=== PATIENT | male | born 1990 | race Two or more races ===

== ENCOUNTER 2024-09-19 10:28 | Inpatient (IN) | payer MEDICAID ==
[~2024-09-19] VITALS: Ht 185.4 cm; Wt 77.1 kg
[2024-09-19] VITALS (8 sets, daily range): BP systolic 79–102; BP diastolic 48–70; TEMP 97.8–101; O2SAT 96–99
[2024-09-19] MEDS ORDERED: LORAZEPAM INJ 2 MG/ML VIAL ONE ×2 (11:00→12:59)
[2024-09-19] MEDS: ONDANSETRON HCL/PF - ER 4 MG/2 ML VIAL IV ONE (11:00)
[2024-09-19] MEDS: LORAZEPAM INJ 2 MG/ML VIAL IV ONE ×2 (11:00→13:05)
[2024-09-19] MEDS ORDERED: ONDANSETRON HCL/PF 4 MG/2 ML VIAL ONE (11:00)
[2024-09-19 11:01] LABS: PLATELET COUNT (AUTO) 271 K/uL (150-450); RED BLOOD CELL COUNT(AUTO) 4.85 MIL/uL (4.5-6.0); RED CELL DISTRIBUTION WIDTH 14.8 % (11.5-15.0); WHITE BLOOD COUNT (AUTO) 16.4 K/uL (4.3-11.0)
[2024-09-19 11:12] LABS: ALCOHOL, BLOOD < 3 mg/dL (0-10)
[2024-09-19 11:13] LABS: CALCIUM, SERUM 7.8 mg/dL (8.5-10.1); CREATININE 3.4 mg/dL (0.6-1.3); SODIUM SERUM 127 mmol/L (136-145); UREA NITROGEN, BLOOD 38 mg/dL (7-18)
[2024-09-19 11:16] LABS: INR 1.01 (0.91-1.10)
[2024-09-19 11:25] LABS: ASPARTATE AMINOTRANSFERASE 113 U/L (15-37); NT-PRO BNP 1543 pg/mL (0-125); TOTAL PROTEIN, SERUM 7.8 g/dL (6.4-8.2)
[2024-09-19 11:45] LABS: LACTIC ACID 22.2 mmol/L (0.4-2.0)
[2024-09-19 11:48] LABS: ABG BASE EXCESS -19.3 mmol/L (-2.0-3.0); ABG OXYGEN SATURATION 95.7 % (94.0-98.0); ABG PCO2 19.3 mmHg (35.0-48.0); ABG PH 7.173 (7.350-7.450); ABG PO2 85.6 mmHg (83.0-108.0); ABG TOTAL HEMOGLOBIN 15.3 G/dL (13.5-17.5); FRACTIONATED INSPIRED OXYGEN 21.0 %; SITE, ABG RIGHT RADIAL
[2024-09-19 11:57] LABS: ACETONE, SERUM NEGATIVE (NEGATIVE)
[2024-09-19 12:01] LABS: CREATINE KINASE, TOTAL 603 U/L (39-308)
[2024-09-19] MEDS: IV NS 0.9% 1,000 ML BAG IV ONE (12:10)
[2024-09-19] MEDS ORDERED: PIPERACI/TAZO 3.375GM/D5W 50ML PB IV ONE (12:16)
[2024-09-19] MEDS ORDERED: SODIUM BICARBONATE SYR 50 MEQ/50 ML DISP.SYRIN ONE (12:21)
[2024-09-19] MEDS: SODIUM BICARBONATE SYR 50 MEQ/50 ML DISP.SYRIN IV ONE (12:27)
[2024-09-19] MEDS ORDERED: IV NS 0.9% 1,000 ML IV SCH (12:30)
[2024-09-19] MEDS ORDERED: SODIUM BICARBONATE 5 MEQ/10 ML DISP.SYRIN IV ONE (12:30)
[2024-09-19] MEDS: PIPERACILLIN /TAZOBACTAM 3.375 G in IV D5W 50 ML IV ONE (12:50)
[2024-09-19] MEDS ORDERED: ASPIRIN 81 MG TAB.CHEW ONE (12:55)
[2024-09-19] MEDS: ASPIRIN 81 MG TAB.CHEW PO ONE (12:58)
[2024-09-19] MEDS ORDERED: IV NS 0.9% 1,000 ML BAG IV ONE (13:00)
[2024-09-19] MEDS ORDERED: PANTOPRAZOLE 40 MG VIAL ONE (13:08)
[2024-09-19] MEDS: PANTOPRAZOLE 40 MG VIAL IV SCH (13:14)
[2024-09-19 14:41] LABS: APPEARANCE,URINE SLIGHTLY CLOUDY (CLEAR); BLOOD, URINE 3+ Ery/uL (NEGATIVE); LEUKOCYTE ESTERASE ,URINE NEGATIVE (NEGATIVE); NITRITE, URINE NEGATIVE (NEGATIVE); UGLUCOSE NEGATIVE (NEGATIVE)
[2024-09-19 14:55] LABS: AMPHETAMINE, URINE NEGATIVE (NEGATIVE); BARBITURATE, URINE NEGATIVE (NEGATIVE); BENZODIAZEPINE, URINE NEGATIVE (NEGATIVE); CANNABINOID, URINE NEGATIVE (NEGATIVE); COCCAINE, URINE NEGATIVE (NEGATIVE); OPIATE, URINE NEGATIVE (NEGATIVE)
[2024-09-19 14:56] LABS: CREATININE, URINE 140.8 MG/DL (30.0-125.0); URINE SODIUM, RANDOM 22.0 mmol/l (40-220); URINE TOTAL PROTEIN 386.6 mg/dL (0-11.9)
[2024-09-19] MEDS: IV D5/ 0.9% NACL 1,000 ML IV SCH (14:58)
[2024-09-19 15:15] LABS: EOSINOPHIL,URINE None Seen
[2024-09-19 15:16] LABS: SQUAMOUS EPITHELIAL CELL,UR Moderate /HPF (None Seen)
[2024-09-19] MEDS: THIAMINE HCL 100 MG TABLET PO SCH (15:16)
[2024-09-19] MEDS: FOLIC ACID 1 MG TABLET PO SCH (15:16)
[2024-09-19 15:17] LABS: ADD URINE CULTURE YES; COARSE GRANULAR CASTS,URINE Many /LPF (None Seen)
[2024-09-19] MEDS: CHLORDIAZEPOXIDE HCL 25 MG CAPSULE PO SCH (15:21)
[2024-09-19] MEDS: ACETAMINOPHEN 325 MG TABLET PO PRN (16:40)
[2024-09-19 16:42] LABS: CREATININE 3.4 mg/dL (0.6-1.3); SODIUM SERUM 133.0 mmol/L (136-145); UREA NITROGEN, BLOOD 41.0 mg/dL (7-18)
[2024-09-19] MEDS: HEPARIN SODIUM, PORCINE 5000 UNITS/1 ML VIAL SQ SCH (16:42)
[2024-09-19] MEDS: Sodium Bicarbonate 100 MEQ in IV D5 / 0.2% NACL 1,000 ML IV SCH (16:43)
[2024-09-19 16:48] LABS: CALCIUM, SERUM 5.5 mg/dL (8.5-10.1)
[2024-09-19] MEDS: LORAZEPAM 1 MG TABLET PO PRN (17:48)
[2024-09-19] MEDS: ONDANSETRON HCL/PF 4 MG/2 ML VIAL IV PRN (17:48)
[2024-09-19] MEDS: Calcium Gluconate 1GM/10ML 4.65 MEQ in IV NS 0.9% 100 ML IV ONE (18:04)
[2024-09-19 18:27] LABS: ABG BASE EXCESS -1.4 mmol/L (-2.0-3.0); ABG OXYGEN SATURATION 94.7 % (94.0-98.0); ABG PCO2 26.8 mmHg (35.0-48.0); ABG PH 7.501 (7.350-7.450); ABG PO2 69.9 mmHg (83.0-108.0); ABG TOTAL HEMOGLOBIN 12.9 G/dL (13.5-17.5); FRACTIONATED INSPIRED OXYGEN 21.0 %; SITE, ABG RIGHT BRACHIAL
[2024-09-19] MEDS: IV D5/ 0.9% NACL 1,000 ML IV PRN (18:43)
[2024-09-20] VITALS (35 sets, daily range): BP systolic 90–132; BP diastolic 54–89; TEMP 98.2–98.9; O2SAT 95–100
[2024-09-20 04:47] LABS: PLATELET COUNT (AUTO) 104 K/uL (150-450); RED BLOOD CELL COUNT(AUTO) 4.01 MIL/uL (4.5-6.0); RED CELL DISTRIBUTION WIDTH 14.2 % (11.5-15.0); WHITE BLOOD COUNT (AUTO) 18.7 K/uL (4.3-11.0)
[2024-09-20 05:32] LABS: ASPARTATE AMINOTRANSFERASE 81.0 U/L (15-37); CALCIUM, SERUM 6.7 mg/dL (8.5-10.1); CREATININE 4.7 mg/dL (0.6-1.3); PHOSPHORUS 1.2 mg/dL (2.5-4.9); SODIUM SERUM 132.0 mmol/L (136-145); TOTAL PROTEIN, SERUM 5.6 g/dL (6.4-8.2); UREA NITROGEN, BLOOD 55.0 mg/dL (7-18)
[2024-09-20 05:33] LABS: CREATINE KINASE, TOTAL 440.0 U/L (39-308)
[2024-09-20] MEDS: Magnesium 1GM/D5W 100ML PREMIX 100 ML IV SCH (09:45)
[2024-09-20] MEDS: NEUTRA PHOS 1 POWD.PACKET PO SCH (09:45)
[2024-09-20 10:00] LABS: ABG BASE EXCESS -0.9 mmol/L (-2.0-3.0); ABG OXYGEN SATURATION 97.3 % (94.0-98.0); ABG PCO2 29.4 mmHg (35.0-48.0); ABG PH 7.484 (7.350-7.450); ABG PO2 97.3 mmHg (83.0-108.0); ABG TOTAL HEMOGLOBIN 12.2 G/dL (13.5-17.5); FRACTIONATED INSPIRED OXYGEN 21.0 %; SITE, ABG LEFT RADIAL
[2024-09-20] MEDS: PIPERACILLIN /TAZOBACTAM 2.25 G in IV D5W 50 ML IV SCH (11:00)
[2024-09-20] MEDS: PANTOPRAZOLE 40 MG TABLET.DR PO SCH (17:22)
[2024-09-20] MEDS: MORPHINE SULFATE INJ 2 MG/ML DISP.SYRIN IV PRN (22:17)
[2024-09-20] MEDS: Calcium Gluconate 0.465 MEQ/ML VIAL IV ONE (22:17)
[2024-09-21 05:08] LABS: PTH, INTACT 154 pg/mL (15-65)
[2024-09-21 07:14] LABS: LACTIC ACID 0.8 mmol/L (0.4-2.0)
[2024-09-21 08:00] VITALS: BP 118/75; TEMP 97.5; O2SAT 96
[2024-09-21 11:19] LABS: PLATELET COUNT (AUTO) 59 K/uL (150-450); RED BLOOD CELL COUNT(AUTO) 3.31 MIL/uL (4.5-6.0); RED CELL DISTRIBUTION WIDTH 14.7 % (11.5-15.0); WHITE BLOOD COUNT (AUTO) 20.3 K/uL (4.3-11.0)
[2024-09-21 11:46] LABS: ASPARTATE AMINOTRANSFERASE 63.0 U/L (15-37); CALCIUM, SERUM 7.4 mg/dL (8.5-10.1); CREATININE 6.6 mg/dL (0.6-1.3); PHOSPHORUS 1.2 mg/dL (2.5-4.9); SODIUM SERUM 126.0 mmol/L (136-145); TOTAL PROTEIN, SERUM 5.3 g/dL (6.4-8.2); UREA NITROGEN, BLOOD 67.0 mg/dL (7-18)
[2024-09-21 12:40] LABS: LYMPHOCYTES % (MANUAL) 8 % (16-48); MONOCYTES % (MANUAL) 1 % (0-11.0); NEUTROPHILS % (MANUAL) 91 (42-76); PLATELET ESTIMATE DECREASED
[2024-09-21] MEDS: POTASSIUM CHLORIDE 20 MEQ TAB.PRT.SR PO SCH (13:04)
[2024-09-21 16:00] VITALS: BP 106/64; TEMP 97.5; TEMP 97.9; O2SAT 98
[2024-09-21] MEDS: POTASSIUM PHOSPHATE MM 15 MMOL in IV NS 0.9% 250 ML IV SCH (16:03)
[2024-09-21 20:00] VITALS: BP 114/80; TEMP 99; O2SAT 91
[2024-09-22 07:30] VITALS: BP 125/87; TEMP 98.4; O2SAT 90
[2024-09-22 09:51] LABS: PLATELET COUNT (AUTO) 74 K/uL (150-450); RED BLOOD CELL COUNT(AUTO) 3.56 MIL/uL (4.5-6.0); RED CELL DISTRIBUTION WIDTH 14.9 % (11.5-15.0); WHITE BLOOD COUNT (AUTO) 17.4 K/uL (4.3-11.0)
[2024-09-22 10:02] LABS: CALCIUM, SERUM 7.5 mg/dL (8.5-10.1); CREATININE 6.7 mg/dL (0.6-1.3); SODIUM SERUM 135.0 mmol/L (136-145); UREA NITROGEN, BLOOD 66.0 mg/dL (7-18)
[2024-09-22 10:15] LABS: ASPARTATE AMINOTRANSFERASE 36.0 U/L (15-37); PHOSPHORUS 2.4 mg/dL (2.5-4.9); TOTAL PROTEIN, SERUM 5.8 g/dL (6.4-8.2)
[2024-09-22 10:54] LABS: LYMPHOCYTES % (MANUAL) 11 % (16-48); MONOCYTES % (MANUAL) 3 % (0-11.0); NEUTROPHILS % (MANUAL) 86 (42-76); PLATELET ESTIMATE DECREASED
[2024-09-22] MEDS: K PHOS NEUTRAL 250 MG TABLET PO ONE (10:54)
[2024-09-22] MEDS: Magnesium 1GM/D5W 100ML PREMIX 100 ML IV SCH (10:54)
[2024-09-22] MEDS: FLUTICASONE PROPIONATE 16 GM BOTTLE NS SCH (13:23)
[2024-09-22 16:00] VITALS: BP 127/93; TEMP 97.5; O2SAT 81
[2024-09-22] MEDS: FUROSEMIDE 20 MG/2 ML VIAL IV ONE (16:38)
[2024-09-22 21:55] VITALS: BP 117/79; TEMP 97.3; O2SAT 93
[2024-09-23] VITALS: BP 122/71; TEMP 98.2; O2SAT 93; O2SAT 98
[2024-09-23 07:30] VITALS: BP 127/85; TEMP 98.6; O2SAT 93
[2024-09-23] MEDS: FUROSEMIDE 40 MG/4 ML VIAL IV ONE (09:57)
[2024-09-23] MEDS: PIPERACILLIN /TAZOBACTAM 2.25 G in IV D5W 50 ML IV SCH (10:00)
[2024-09-23 11:49] LABS: PLATELET COUNT (AUTO) 97 K/uL (150-450); RED BLOOD CELL COUNT(AUTO) 3.74 MIL/uL (4.5-6.0); RED CELL DISTRIBUTION WIDTH 15.1 % (11.5-15.0); WHITE BLOOD COUNT (AUTO) 11.3 K/uL (4.3-11.0)
[2024-09-23 11:59] LABS: CREATININE 5.9 mg/dL (0.6-1.3); SODIUM SERUM 133.0 mmol/L (136-145); UREA NITROGEN, BLOOD 65.0 mg/dL (7-18)
[2024-09-23 12:04] LABS: CALCIUM, SERUM 7.9 mg/dL (8.5-10.1)
[2024-09-23 12:38] LABS: EOSINOPHILS % (MANUAL) 7 % (0-4); LYMPHOCYTES % (MANUAL) 16 % (16-48); MONOCYTES % (MANUAL) 13 % (0-11.0); NEUTROPHILS % (MANUAL) 64 (42-76); PLATELET ESTIMATE DECREASED
[2024-09-23] MEDS: POTASSIUM CHLORIDE 20 MEQ TAB.PRT.SR PO ONE (15:24)
[2024-09-23 16:00] VITALS: BP 132/92; TEMP 98.2; O2SAT 98
[2024-09-23 20:00] VITALS: BP 130/89; TEMP 98.2; O2SAT 98
[2024-09-24] VITALS (8 sets, daily range): BP systolic 125–182; BP diastolic 86–100; TEMP 97.3–98.4; O2SAT 91–99
[2024-09-24 06:39] LABS: PLATELET COUNT (AUTO) 157 K/uL (150-450); RED BLOOD CELL COUNT(AUTO) 3.81 MIL/uL (4.5-6.0); RED CELL DISTRIBUTION WIDTH 14.8 % (11.5-15.0); WHITE BLOOD COUNT (AUTO) 8.9 K/uL (4.3-11.0)
[2024-09-24 06:50] LABS: CALCIUM, SERUM 8.6 mg/dL (8.5-10.1); CREATININE 5.5 mg/dL (0.6-1.3); SODIUM SERUM 135.0 mmol/L (136-145); UREA NITROGEN, BLOOD 62.0 mg/dL (7-18)
[2024-09-24 08:13] LABS: EOSINOPHILS % (MANUAL) 6 % (0-4); LYMPHOCYTES % (MANUAL) 23 % (16-48); METAMYELOCYTES % 1 % (0-0); MONOCYTES % (MANUAL) 20 % (0-11.0); NEUTROPHILS % (MANUAL) 49 (42-76)
[2024-09-24 08:14] LABS: PLATELET ESTIMATE ADEQUATE
[2024-09-24] MEDS: POTASSIUM CHLORIDE 20 MEQ TAB.PRT.SR PO ONE (09:21)
[2024-09-24] MEDS: APIXABAN 5 MG TABLET PO SCH (16:17)
[2024-09-24] MEDS: MORPHINE SULFATE INJ 2 MG/ML DISP.SYRIN IV PRN (17:39)
[2024-09-25] VITALS: BP 132/87; TEMP 98.4; O2SAT 95
[2024-09-25 04:00] VITALS: BP 136/86; TEMP 98.1; O2SAT 95
[2024-09-25 04:30] VITALS: BP 136/86; TEMP 98.1; O2SAT 95
[2024-09-25] MEDS ORDERED: REGADENOSON 0.4 MG/5 ML DISP.SYRIN IVP ONE (07:30)
[2024-09-25 08:00] VITALS: BP 138/87; TEMP 98.1; O2SAT 99
[2024-09-25 08:07] LABS: RED BLOOD CELL COUNT(AUTO) 3.92 MIL/uL (4.5-6.0); WHITE BLOOD COUNT (AUTO) 10.1 K/uL (4.3-11.0)
[2024-09-25 08:08] LABS: PLATELET COUNT (AUTO) 256 K/uL (150-450); RED CELL DISTRIBUTION WIDTH 14.9 % (11.5-15.0)
[2024-09-25 09:28] LABS: EOSINOPHILS % (MANUAL) 3 % (0-4); LYMPHOCYTES % (MANUAL) 24 % (16-48); MONOCYTES % (MANUAL) 19 % (0-11.0); NEUTROPHILS % (MANUAL) 54 (42-76); PLATELET ESTIMATE ADEQUATE
[2024-09-25 09:46] LABS: SODIUM SERUM 136.0 mmol/L (136-145)
[2024-09-25 09:47] LABS: CALCIUM, SERUM 8.6 mg/dL (8.5-10.1); CREATININE 3.7 mg/dL (0.6-1.3); PHOSPHORUS 3.6 mg/dL (2.5-4.9); UREA NITROGEN, BLOOD 47.0 mg/dL (7-18)
[2024-09-25 09:48] LABS: ASPARTATE AMINOTRANSFERASE 20.0 U/L (15-37); TOTAL PROTEIN, SERUM 6.6 g/dL (6.4-8.2)
[2024-09-25] MEDS: POTASSIUM CHLORIDE 20 MEQ TAB.PRT.SR PO ONE (11:11)
[2024-09-25 16:00] VITALS: BP 124/88; TEMP 98.2; O2SAT 98
[2024-09-25 20:00] VITALS: BP 148/95; TEMP 98.2; O2SAT 97
[2024-09-26] VITALS: BP 147/90; TEMP 98.1; O2SAT 97
[2024-09-26 04:00] VITALS: BP 149/95; TEMP 98.6; O2SAT 95
[2024-09-26 07:45] LABS: PLATELET COUNT (AUTO) 338 K/uL (150-450); RED BLOOD CELL COUNT(AUTO) 4.08 MIL/uL (4.5-6.0); RED CELL DISTRIBUTION WIDTH 15.2 % (11.5-15.0); WHITE BLOOD COUNT (AUTO) 12.6 K/uL (4.3-11.0)
[2024-09-26 08:24] LABS: CALCIUM, SERUM 8.9 mg/dL (8.5-10.1); CREATININE 2.8 mg/dL (0.6-1.3); SODIUM SERUM 136 mmol/L (136-145); UREA NITROGEN, BLOOD 31 mg/dL (7-18)
[2024-09-26 08:32] LABS: ASPARTATE AMINOTRANSFERASE 27 U/L (15-37); PHOSPHORUS 3.6 mg/dL (2.5-4.9); TOTAL PROTEIN, SERUM 7.1 g/dL (6.4-8.2)
[2024-09-26 09:08] LABS: LYMPHOCYTES % (MANUAL) 24 % (16-48); NEUTROPHILS % (MANUAL) 64 (42-76)
[2024-09-26 09:09] LABS: EOSINOPHILS % (MANUAL) 3 % (0-4); MONOCYTES % (MANUAL) 9 % (0-11.0); PLATELET ESTIMATE ADEQUATE
[2024-09-26] MEDS ORDERED: PANT40TA49 PO (09:23)
[2024-09-26] MEDS ORDERED: APIX5TAB PO (09:23)
[2024-09-26] MEDS: HYDROCODONE/APAP 5/325MG TABLET PO ONE (09:58)
[2024-09-26] MEDS: POTASSIUM CHLORIDE 20 MEQ TAB.PRT.SR PO ONE (09:59)
[2024-09-26 14:07] LABS: *SPE A/G RATIO 1.3 (0.7-1.7); *SPE ALBUMIN 2.9 g/dL (2.9-4.4); *SPE ALPHA-1-GLOBULIN 0.3 g/dL (0.0-0.4); *SPE ALPHA-2-GLOBULIN 0.7 g/dL (0.4-1.0); *SPE BETA GLOBULIN 0.7 g/dL (0.7-1.3); *SPE GLOBULIN, TOTAL 2.3 g/dL (2.2-3.9); *SPE M-SPIKE Not Observed g/dL (Not Observed); *SPE PROTEIN TOTAL 5.2 g/dL (6.0-8.5); *SPEGAMMA GLOBULIN 0.7 g/dL (0.4-1.8)
[2024-09-26] MEDS ORDERED: PIPERACILLIN /TAZOBACTAM 3.375 G in IV D5W 100 ML IV SCH (16:00)
== END 2024-09-26 10:30 | disposition home or self-care (01) | DRG 720 ==
LOC: ER 10:40 → ICU 13:36 → MED 09-21 00:31 → TELE 09-22 18:03
PROVIDERS: ADMIT Internal Medicine; ATTEND Internal Medicine
PROC: 02HV33Z Insertion of Infusion Device into Superior Vena Cava, Percutaneous Approach (ICD-10-PCS; principal; 2024-09-19)
PROC: B548ZZA Ultrasonography of Superior Vena Cava, Guidance (ICD-10-PCS; 2024-09-19)
DX: A41.9 Sepsis, unspecified organism (principal); J96.00 Acute respiratory failure, unspecified whether with hypoxia or hypercapnia; J69.0 Pneumonitis due to inhalation of food and vomit; N17.0 Acute kidney failure with tubular necrosis; E86.0 Dehydration; I21.A1 Myocardial infarction type 2; E87.20 Acidosis, unspecified; F10.139 Alcohol abuse with withdrawal, unspecified; I82.622 Acute embolism and thrombosis of deep veins of left upper extremity; Y90.0 Blood alcohol level of less than 20 mg/100 ml; K29.20 Alcoholic gastritis without bleeding; E83.39 Other disorders of phosphorus metabolism; D64.9 Anemia, unspecified; D69.59 Other secondary thrombocytopenia; E83.42 Hypomagnesemia; E87.1 Hypo-osmolality and hyponatremia; E87.6 Hypokalemia; F12.10 Cannabis abuse, uncomplicated; F17.210 Nicotine dependence, cigarettes, uncomplicated; I25.2 Old myocardial infarction; Z59.71 Insufficient health insurance coverage; N18.9 Chronic kidney disease, unspecified; K76.0 Fatty (change of) liver, not elsewhere classified; E86.9 Volume depletion, unspecified; M89.8X9 Other specified disorders of bone, unspecified site
CPT/HCPCS: 36415; 36569; 36600; 71045-TC; 71250-TC; 76770-TC; 80048-TC; 80053-TC; 80076-TC; 81001; 82010-TC; 82550-TC; 82553; 82570-TC; 82803-TC; 83605-TC; 83735-TC; 83880; 83935-TC; 83970; 84100-TC; 84155; 84165; 84300-TC; 84484-TC; 85025-TC; 85027-TC; 85730-TC; 86022; 87040-TC; 87081-TC; 87086-TC; 93307-TC; 93971-TC; 97116-TC; 97530-TC; A4223; A6253; A9502; G0378; G0480; J0612; J1644; J1938; J2060; J2270; J2405; J2470; J2543; J2785; J3475; J3490; J7030; J7042; J7050; J7060

== ENCOUNTER 2024-11-06 09:19 | Emergency (ER) | payer MEDICAID ==
[~2024-11-06] VITALS: Ht 185.4 cm; Wt 69.4 kg
[~2024-11-06 09:19] MED LIST: APIX5TAB PO; PANT40TA49 PO
[2024-11-06] MEDS ORDERED: LORAZEPAM INJ 2 MG/ML VIAL ONE (09:35)
[2024-11-06] MEDS: LORAZEPAM INJ 2 MG/ML VIAL IV ONE (09:40)
[2024-11-06] MEDS: IV NS 0.9% 1,000 ML BAG IV ONE (09:41)
[2024-11-06 09:49] LABS: PLATELET COUNT (AUTO) 357 K/uL (150-450); RED BLOOD CELL COUNT(AUTO) 4.04 MIL/uL (4.5-6.0); RED CELL DISTRIBUTION WIDTH 13.4 % (11.5-15.0); WHITE BLOOD COUNT (AUTO) 10.1 K/uL (4.3-11.0)
[2024-11-06 09:58] LABS: CALCIUM, SERUM 9.2 mg/dL (8.5-10.1); CREATININE 1.4 mg/dL (0.6-1.3); SODIUM SERUM 131 mmol/L (136-145); UREA NITROGEN, BLOOD 14 mg/dL (7-18)
[2024-11-06 09:59] LABS: ALCOHOL, BLOOD < 3 mg/dL (0-10)
[2024-11-06 10:23] VITALS: TEMP 98.2
[2024-11-06 10:38] LABS: PHOSPHORUS 2.2 mg/dL (2.5-4.9)
[2024-11-06] MEDS: POTASSIUM CL. PREMIX PERIPHER. 50 ML IV SCH (10:40)
[2024-11-06] MEDS: POTASSIUM CHLORIDE 20 MEQ TAB.PRT.SR PO ONE (10:41)
[2024-11-06] MEDS ORDERED: KETOROLAC TROMETHAMINE 15 MG/ML VIAL ONE (11:20)
[2024-11-06] MEDS: KETOROLAC TROMETHAMINE 15 MG/ML VIAL IV ONE (11:25)
[2024-11-06] MEDS ORDERED: Magnesium 1GM/D5W 100ML PREMIX 100 ML IV ONE (11:40)
[2024-11-06] MEDS ORDERED: CHLO25CA22 PO (11:42)
[2024-11-06] MEDS: Magnesium 1GM/D5W 100ML PREMIX 100 ML IV SCH (12:10)
[2024-11-06 12:12] LABS: AMPHETAMINE, URINE NEGATIVE (NEGATIVE); BARBITURATE, URINE NEGATIVE (NEGATIVE); BENZODIAZEPINE, URINE NEGATIVE (NEGATIVE); CANNABINOID, URINE NEGATIVE (NEGATIVE); COCCAINE, URINE NEGATIVE (NEGATIVE); OPIATE, URINE NEGATIVE (NEGATIVE)
[2024-11-06 13:15] VITALS: BP 137/80; O2SAT 99
== END 2024-11-06 13:05 | disposition home or self-care (01) ==
LOC: ER 09:23
DX: F10.239 Alcohol dependence with withdrawal, unspecified (principal); F41.1 Generalized anxiety disorder; R00.2 Palpitations; R06.02 Shortness of breath; R07.9 Chest pain, unspecified; R79.89 Other specified abnormal findings of blood chemistry; E83.42 Hypomagnesemia; E87.6 Hypokalemia; N28.9 Disorder of kidney and ureter, unspecified; R20.2 Paresthesia of skin; Z79.01 Long term (current) use of anticoagulants; Z79.899 Other long term (current) drug therapy; Z86.718 Personal history of other venous thrombosis and embolism; Z87.01 Personal history of pneumonia (recurrent)
CPT/HCPCS: 99285; 96365; 96361; 96366; 96375; 93005 ×2; 71045; 72170; 85025; 80048; 83735; 84100; 36415; 84443; 84484 ×2; 80320; 80307; J2060; J7030; A6254; J3480; A4223; J3475; J1885; G0480